=== PATIENT | female | born 1930 | race Asian ===

== ENCOUNTER 2018-05-14 09:14 | Emergency (ER) | payer MEDICARE ==
[~2018-05-14] VITALS: Ht 149.9 cm; Wt 40.8 kg
[~2018-05-14 09:14] MED LIST: ASPI-1169; ATOR10TA; LOSA25TA3
--- NOTE | 2018-05-14 09:14 | NUR ---
BIB [employer] E[employer] AND [id number] FOR HEAD BRUISE S/P GLF X 0830, FAMILY DENIES N/V, -LOC, TO ER BED 3, HOOKED TO MONITOR, PT NON-VERBAL. NAD, AWAITING MD HIDALGO.
--- NOTE | 2018-05-14 10:05 | NUR ---
BACK FROM CT SCAN
--- NOTE | 2018-05-14 10:54 | NUR ---
Patient discharged to home in stable condition. Written and verbal after care instructions given. [id number] verbalizes understanding of instruction.
[2018-05-14 10:55] VITALS: BP 144/96
== END 2018-05-14 10:56 | disposition home or self-care (01) ==
LOC: ER 09:19
DX: S00.83XA Contusion of other part of head, initial encounter (principal); I10 Essential (primary) hypertension; E11.9 Type 2 diabetes mellitus without complications; F03.90 Unspecified dementia, unspecified severity, without behavioral disturbance, psychotic disturbance, mood disturbance, and anxiety; Z79.82 Long term (current) use of aspirin; Z79.899 Other long term (current) drug therapy; W01.0XXA Fall on same level from slipping, tripping and stumbling without subsequent striking against object, initial encounter; Y93.89 Activity, other specified; Y92.488 Other paved roadways as the place of occurrence of the external cause; Y99.8 Other external cause status
CPT/HCPCS: 70450-TC